=== PATIENT | male | born 1990 | race Caucasian/White ===

== ENCOUNTER 2022-01-01 09:07 | Emergency (ER) | payer MEDICAID, SELFPAY ==
[2022-01-01 09:07] VITALS: BP 131/93; PULSE 57; RESP 16; TEMP 36.6; O2SAT 99; BMI 24.3
--- NOTE | 2022-01-01 09:19 | ED.VIS.DENTA ---
HPI History of Present Illness Chief Complaint: Dental Narrative Narrative: Patient presents with left lower jaw pain/tooth pain and mild swelling of his gum that he noticed this morning. He states he has a cracked tooth in his left lower jaw and was last seen by dentist 4 months ago. He is supposed to have root canal procedure performed, but has been putting it off. He denies any chest pain or shortness of breath. No difficulty swallowing, no drooling or difficulty opening his jaw. He thinks he might have a dental infection. He is not a smoker. PFSH PFSH Home Medications cephalexin 500 mg capsule 500 mg PO TID 04/09/16 [History Last Taken 04/09/16] sulfamethoxazole 800 mg-trimethoprim 160 mg tablet 1 tab PO BID 04/09/16 [History Last Taken 04/09/16] clindamycin HCl 300 mg capsule 300 mg PO TID #21 caps 01/01/22 [Rx Last Taken Unknown] ibuprofen 800 mg tablet 800 mg PO Q8H PRN pain #30 tabs 01/01/22 [Rx Last Taken Unknown] Allergy/AdvReac Type Severity Reaction Status Date / Time No Known Allergies Allergy Verified 04/09/16 10:32 Social History Smoking Status: Current every day smoker ROS ROS ED ROS Narrative Constitutional: No fever, no chills. HEENT: No sore throat. No neck pain. No loss of vision. No rhinorrhea. Positive pain in left lower jaw, dull and achy. Swelling of gum around tooth this morning. Cardiovascular: No chest pain. No palpitations. No pedal edema. Respiratory: No cough, no shortness of breath. Abdominal: No abdominal pain. No nausea. No vomiting. Genitourinary: No dysuria. No hematuria. Musculoskeletal: No myalgias. No arthralgias. Neurologic: No headaches. No dizziness. No lightheadedness. Skin: No rash. No change in color. Psychiatric: No depression. No anxiety. EXAM Physical Exam Narrative Exam Narrative: Afebrile. Vital signs noted. HEENT: Normocephalic. Atraumatic. PERRL, EOMI. Neck soft and supple. No point tenderness or step off. Mild tenderness to percussion tooth #19, no drooling or trismus. Airway patent. No Jon angina or woody edema. Handling secretions well. No noted focal gum swelling. Cardiovascular: Regular rate and rhythm. No murmurs, rubs, or gallops appreciated. Respiratory: No tachypnea. Lungs clear to auscultation bilaterally. Gastrointestinal: Abdomen soft, nontender, with normoactive bowel sounds. No rebound or guarding. Neurological: Awake. Alert. Nonfocal, nonlateralizing. Skin: No rash. Normal color. No pallor. Musculoskeletal: No pedal edema. Full range of motion extremities. Const Vital Signs: 01/01/22 09:07 Temperature 97.9 F Temperature Source Temporal Pulse Rate 57 L Respiratory Rate 16 Blood Pressure 131/93 H Blood Pressure Mean 105 Pulse Ox 99 Oxygen Delivery Method Room Air MDM MDM MDM Narrative Medical decision making narrative: Patient will be given prescriptions for ibuprofen 800 mg to take as needed for analgesia. I will put him on a course of clindamycin. He was instructed to follow-up with his dentist as soon as possible. I see no signs of drainable abscess currently. I feel he can be discharged safely home with follow-up. Return instructions to the emergency department were reviewed. Disposition is discharged home in stable condition. Discharge Plan Triage Chief Complaint: Dental ED Provider: Desmond Pineda Dx/Rx/DC Orders Clinical Impression: Pain due to dental caries, Periapical abscess Instructions: ED Dental Pain, ED Dental Abscess Prescriptions: New clindamycin HCl 300 mg capsule 300 mg PO TID Qty: 21 0RF ibuprofen 800 mg tablet 800 mg PO Q8H PRN (Reason: pain) Qty: 30 0RF No Action sulfamethoxazole-trimethoprim 1 TABLET tablet 1 tab PO BID cephalexin 500 MG capsule 500 mg PO TID Primary Care Provider: Care Physician,No Primary Referrals: Care Physician,No Primary [Primary Care Provider] - Activity Restrictions/Additional Instructions: Follow-up with your dentist as soon as possible. Disposition Disposition: Home, Self Care
== END 2022-01-01 09:27 | disposition home or self-care (01) ==
PROVIDERS: Emergency Provider Emergency Medicine; Visit Provider Emergency Medicine
DX: K04.7 Periapical abscess without sinus (principal); K02.9 Dental caries, unspecified; F17.200 Nicotine dependence, unspecified, uncomplicated
CPT/HCPCS: 99282

== ENCOUNTER 2022-01-03 08:58 | Emergency (ER) | payer MEDICAID, SELFPAY ==
[2022-01-03 09:00] VITALS: BP 128/91; PULSE 57; RESP 16; TEMP 36.3; O2SAT 99; BMI 24.2
--- NOTE | 2022-01-03 09:17 | EDS_ITS ---
HPI History of Present Illness Chief Complaint: Dental Detail of Chief Complaint: Left lower jaw dental abscess Informant: patient Onset/Context/Timing Onset: Days Context: Gradual Onset Timing: Continuous Current Severity: Moderate Maximum Severity: Moderate Associated Symptoms Assocated Symptom - Dental: jaw swelling; Negative for fever Narrative Narrative: 31-year-old male no seen past medical history. For about a week he has had swelling and pain left lower jaw. He has a dental abscess. He was seen 2 days ago placed on clindamycin. He said the swelling is only worse and he was hoping to get it drained today. He denies any other complaints. Prior similar symptoms: No Recent Illness/Hospitalization: No PFSH PFSH Medical History no medical history no medical history Home Medications cephalexin 500 mg capsule 500 mg PO TID 04/09/16 [History Last Taken 04/09/16] sulfamethoxazole 800 mg-trimethoprim 160 mg tablet 1 tab PO BID 04/09/16 [History Last Taken 04/09/16] clindamycin HCl 300 mg capsule 300 mg PO TID #21 caps 01/01/22 [Rx Last Taken Unknown] ibuprofen 800 mg tablet 800 mg PO Q8H PRN pain #30 tabs 01/01/22 [Rx Last Taken Unknown] Allergy/AdvReac Type Severity Reaction Status Date / Time No Known Allergies Allergy Verified 01/03/22 08:59 Social History Smoking Status: Current every day smoker tobacco type: cigarettes ROS ROS ED ROS Narrative Denies. Review of Systems ROS Unobtainable: Denies due to encephalopathy Constitutional Constitutional ED: Denies chills or fever(s) Eyes Eyes: Denies blurry vision ENT ENT ED: Denies ear pain Cardiovascular Cardiovascular: Denies chest pain Respiratory/Chest Respiratory/Chest: Denies cough Gastrointestinal Gastrointestinal: Denies abdominal pain Genitourinary Genitourinary ED: Denies dysuria Musculoskeletal Musculoskeletal: Denies arthralgias Neurologic Neurologic: Denies headache(s) Psychiatric Psychiatric: Denies anxiety Endocrine Endocrinology: Denies cold intolerance Hematologic/Lymphatic Hematologic/Lymphatic: Denies easy bleeding Allergic/Immunologic Allergic/Immunologic ED: Reports mouth swelling; Denies tongue swelling or urti caria EXAM Physical Exam Narrative Exam Narrative: 31-year-old male no acute distress vital signs stable afebrile. HEENT exam is mild swelling left lower jaw. There is an abscess lateral to the teeth along the gumline. He does have areas of dental cavities and decay. Posterior phary nx unremarkable. Underneath his tongue there is no swelling or tenderness. No trouble swallowing or breathing. Neck nontender. No lymphadenopathy. Lungs clear to auscultation. Heart regular rhythm no murmur. Abdomen soft nontender. Const Vital Signs: 01/03/22 09:00 Temperature 97.3 F L Temperature Source Temporal Pulse Rate 57 L Respiratory Rate 16 Blood Pressure 128/91 H Blood Pressure Mean 103 Pulse Ox 99 Oxygen Delivery Method Room Air Positive well nourished and well developed; Negative for obese, cachectic, contractures or unkempt General Appearance ED: well developed and NAD; Negative for unkempt, cachectic or contractures Nutritional Appearance: Negative for cachectic or obese HEENT Negative for trauma Face and Sinus: Negative for sinuses nontender Mouth ED: Yes lips normal, Yes tongue normal, Yes salivary gland normal, No mouth trauma, Yes oral and palatal mucosa abnormal and No salivary gland abnormal Mouth: lips normal, tongue normal, salivary gland normal, No mouth trauma, oral and palatal mucosa abnormal and No salivary gland abnormal Teeth and Gingiva: abnormal tooth and associated gingiva Throat: posterior oropharynx normal Eyes PERRL Neck no lymphadenopathy, supple and no JVD General: normal visual inspection; Negative for anterior neck swelling, tenderness or submandibular swelling Lymph Lymphatic: no lymphadenopathy noted; Negative for lymphadenopathy Chest Wall inspection of chest normal and palpation of chest normal Resp normal respiratory effort, no retractions and clear to auscultation bilaterally Cardio regular rate, regular rhythm, S1 normal heart sound, S2 normal heart sound and no murmurs GI normal to inspection, nondistended, normoactive bowel sounds, non-tender and non-distended Extremity normal to inspection General Extremety ED: Negative for edema General Extremity: Negative for edema Neuro oriented x3, moves all extremities and no focal motor deficits Sensorium / Orientation: alert, oriented to person, oriented to place and oriented to time Motor Exam: strength 5/5 throughout Psych mental status grossly normal Appearance: Negative for unkempt Attitude: No agitated Mood & Affect: Negative for depressed, anxious or tearful Skin no rashes or lesions noted and no wounds Image ED - URI/Dental Diagram: 1. Left lower lateral gumline swelling consistent with an abscess. MDM MDM MDM Narrative Medical decision making narrative: Patient has an abscess along the left lower gumline. Area be anesthetized incised. Drained. He will continue on his current antibiotic clindamycin. Warm salt water gargling. Follow-up with his dentist. Procedures Other Procedures Procedure(s): Left lower gumline abscess incision and drainage. Local anesthetized with lidocaine. Made a 1 to 2 cm incision. Expressed pus. Patient washed his mouth out. Tolerated procedure well. Discharge Plan Triage Chief Complaint: Dental ED Provider: Claude Reinoso Dx/Rx/DC Orders Clinical Impression: Periapical abscess Instructions: Dental Abscess Prescriptions: No Action sulfamethoxazole-trimethoprim 1 TABLET tablet 1 tab PO BID cephalexin 500 MG capsule 500 mg PO TID clindamycin HCl 300 mg capsule 300 mg PO TID Qty: 21 0RF ibuprofen 800 mg tablet 800 mg PO Q8H PRN (Reason: pain) Qty: 30 0RF Primary Care Provider: Care Physician,No Primary Referrals: Care Physician,No Primary [Primary Care Provider] - Activity Restrictions/Additional Instructions: Warm salt water gargling 3-5 times a day. Continue your antibiotic clindamycin as prescribed. Tylenol and Motrin for pain. Follow-up with your dentist as soon as possible. Disposition Disposition: Home, Self Care
[2022-01-03] MEDS: Lidocaine 1% (20 ml mdv) 20 ML Vial INFILT (09:37)
== END 2022-01-03 09:41 | disposition home or self-care (01) ==
PROVIDERS: Emergency Provider Emergency Medicine; Visit Provider Emergency Medicine
DX: K04.7 Periapical abscess without sinus (principal); F17.210 Nicotine dependence, cigarettes, uncomplicated; K02.9 Dental caries, unspecified
CPT/HCPCS: 41800; 64999; 99282

== ENCOUNTER → 2023-06-25 | Outpatient (CLI) | payer MEDICAID, SELFPAY ==
[2023-06-25 11:51] LABS: Absolute Lymphocyte Count 2.86 X10^3/uL (0.83-4.51); Absolute Neutrophil Count 7.5 X10^3/uL (2.0-7.7); Basophil# 0.05 X10^3/uL; Basophil% 0.5 % (0-1); Eosinophil# 0.06 X10^3/uL; Eosinophils% 0.5 % (0-5); Hemoglobin 14.3 g/dL (13.0-16.5); Lymphocyte # 2.86 X10^3/ul (0.83-4.51); Lymphocyte % 25.8 % (19-41); Mean Corp Hgb Conc 33.3 g/dL (32-36); Mean Corpuscular Volume 84.1 fL (80-94); Mean Platelet Vol. 10.8 fl (6.2-12.0); Monocyte# 0.64 X10^3/uL; Monocyte% 5.8 % (0-10); NRBC Flagged by Analyzer 0 % (0-5); Neutrophil # 7.45 X10^3/uL (2.7-7.7); Neutrophil % 67.2 % (47-70); Platelet Count 308 K/mm3 (150-450); RBC Distribution Width CV 12.3 % (11.6-14.6); RBC Distribution Width SD 37.8 fl (35.1-43.9); Red Blood Count 5.11 M/mm3 (4.6-6.2); White Blood Count 11.1 K/mm3 (4.4-11.0)
[2023-06-25 13:28] LABS: ALB/GLOB Ratio 1.1 RATIO (0.9-2.4); AST(SGOT) 22 U/L (15-37); Alanine Aminotransfer ALT/SGPT 25 U/L (16-61); Albumin, Serum 4.1 g/dL (3.2-5.0); Alkaline Phosphatase 66 U/L (45-117); Anion Gap 5 (5-15); BUN 23 mg/dL (7-18); BUN/Creat Ratio 18.1 RATIO (10-20); Calcium,Total 9.1 mg/dL (8.5-10.1); Chloride 103 mmol/L (98-107); Creatinine, Serum 1.27 mg/dL (0.70-1.30); EST Glomerular Filtration Rate 69 mL/min (>60); Est Glom Filt Rate - Afr Amer 84 mL/min (>60); Globulin 3.6 g/dL (2.2-4.2); Glucose 93 mg/dL (74-106); Potassium 3.7 mmol/L (3.5-5.1); Protein, Total 7.7 g/dL (6.4-8.2); Sodium Level 136 mmol/L (136-145)
--- OUTSIDE RECORDS SUMMARY | 2023-06-25 14:09 | XMS RPT_ITS | CCD ---
Author Name Unknown Address [address] [place] [address] [facility] Care Team Providers Care [facility] Runner Name Role Phone UNKNOWN, PROVIDER Unavailable Unavailable Alvarez Hughes Unavailable Unavailable Ronni Short Unavailable Unavailable KATHERIN CABRERA Unavailable Unavailable ESTERLEKATHERIN Unavailable Unavailable ESTERLEKATHERIN Unavailable Unavailable ESTERLEKATHERIN Unavailable Unavailable ESTERKATHERIN CARLOS Unavailable Unavailable ESTERKATHERIN CARLOS Unavailable Unavailable ESTERLE, KATHERIN Unavailable Unavailable ESTERKATHERIN CARLOS Unavailable Unavailable DEBORAHKATHERIN HOWARD Attending Unavailable ESTERKATHERIN CARLOS Attending Unavailable IMCA Referring Unavailable ESTERKATHERIN CARLOS Attending Unavailable ESTERKATHERIN CARLOS Referring Unavailable ESTERKATHERIN CARLOS Admitting Unavailable ESTERKATHERIN CARLOS Attending Unavailable KOUTRODIMOS, MILENA (OT) Attending Unav ailable ESTERKATHERIN CARLOS Referring Unavailable KOUTRODIMOS, MILENA (OT) Attending Unav ailable ESTERKATHERIN CARLOS Referring Unavailable ESTERKATHERIN CARLOS Attending Unavailable ESTERKATHERIN CARLOS Referring Unavailable KOUTRODIMOS, MILENA (OT) Attending Unav ailable ESTERKATHERIN CARLOS Referring Unavailable No, Physician Primary Care Provider UnavailRICH De Luna Attending Unavail able NO, PHYSICIAN Primary Care Unavailable Jem Najera MD Primary Care Provider [phone] JEM NAJERA Primary Care Unavailable KATHERIN VALLADARES Attending Unavailable CAPALDO, JEM Primary Care Unavailable ONEL WALL Attending Unavailable JEM NAJERA Primary Care Unavailable JEM NAJERA Primary Care Unavailable JEM NAJERA Attending Unavailable Medications Current Medications Medication Drug Class(es) Dates Sig (Normalized) Sig (Original) clotrimazole 10 mg/ml topical cream (7 sources) Azole Antifungal Start: 07-26-2022 End: 08-09-2022 clotrimazole (LOTRIMIN) 1 % cream Indications: Rash and nonspecific skin eruption Apply topically 2 (two) times a day for 14 days . 60 g 0 07/26/2022 08/09/2022 Active Problems Problem Classification Problem Date Documented Da te Episodic/Chronic Crushing injury or internal injury (1 source) Crushing injury of right index finger, initial encounter; Translations: [Crushing injury of right index finger, initial encounter] Onset: 03-11-2018 Episodic Fracture of upper limb (2 sources) Displaced fracture of distal phalanx of right index finger, initial encounter for open fracture; Translations: [Nondisplaced fracture of distal phalanx of right index finger, initial encounter for open fracture] Onset: 03-09-2018 Episodic Hepatitis (2 sources) Chronic viral hepatitis C; Translations: [Chronic viral hepatitis C] Onset: 10-04-2022 Chronic Hepatitis (1 source) Viral hepatitis C; Translations: [Unspecified viral hepatitis C without hepatic coma] 08-31-2022 Episodic Nutritional deficiencies (6 sources) Vitamin D deficiency; Translations: [Vitamin D deficiency, unspecified] Onset: 08-30-2022 08-21-2022 Chronic Open wounds of extremities (1 source) Laceration without foreign body of unspecified finger with damage to nail, initial encounter; Translations: [Laceration without foreign body of unspecified finger with damage to nail, initial encounter] Onset: 03-11-2018 Episodic Other bone disease and musculoskeletal deformities (1 source) Acquired absence of unspecified finger(s); Translations: [Acquired absence of unspecified finger(s)] Onset: 03-24-2018 Episodic Other infections; including parasitic (10 sources) History of hepatitis C; Translations: [Personal history of other infectious and parasitic diseases] Onset: 08-23-2022 08-23-2022 Episodic Other infections; including parasitic (2 sources) Personal history of other infectious and parasitic diseases; Translations: [Personal history of other infectious and parasitic diseases] Onset: 08-23-2022 Episodic Other skin disorders (1 source) Eruption; Translations: [Rash and other nonspecific skin eruption] Episodic Other skin disorders (2 sources) Rash and other nonspecific skin eruption; Translations: [Rash and other nonspecific skin eruption] Onset: 07-26-2022 Episodic Poisoning by other medications and drugs (2 sources) Poisoning by unspecified narcotics, accidental (unintentional), initial encounter; Translations: [Poisoning by unsp narcotics, accidental, init] Onset: 02-12-2018 Substance-related disorders (2 sources) Nicotine dependence, unspecified, uncomplicated; Translations: [Nicotine dependence, unspecified, uncomplicated] Onset: 02-12-2018 Chronic Unclassified (2 sources) Transient alteration of awareness; Translations: [Transient alteration of awareness] Onset: 02-12-2018 Episodic Unclassified (1 source) Unknown / UNK(Unknown) Onset: 03-13-2018 Unclassified (2 sources) Laceration without foreign body of unspecified finger with damage to nail, initial encounter Onset: 03-11-2018 Results Test Name Value Interpretation Reference Range Facil ity Vital Signs Date Time Vital Sign Value Performing Clinician Faci lity 08-23-2022 14:34-0400 Body height 172.7 cm Jem Najera MD Work Phone: [facility] 08-23-2022 14:34-0400 Body mass index (BMI) [Ratio] 24.5 kg/m2 Jem Najera MD Work Phone: [facility] 08-23-2022 14:34-0400 Body temperature 98.1 [degF] Jem Najera MD Work Phone: [facility] 08-23-2022 14:34-0400 Body weight 73.07 kg Jem Najera MD Work Phone: [facility] 08-23-2022 14:34-0400 Diastolic blood pressure 66 mm[Hg] Jem Najera MD Work Phone: [facility] 08-23-2022 14:34-0400 Heart rate 60 /min Jem Najera MD Work Phone: [facility] 08-23-2022 14:34-0400 Respiratory rate 16 /min Jem Najera MD Work Phone: [facility] 08-23-2022 14:34-0400 Systolic blood pressure 118 mm[Hg] Jem Najera MD Work Phone: [facility] 07-26-2022 15:20-0500 Body height 172.7 cm Rich Farrell QUALITY IMPROVEMENT CONSULTANT Work Phone: [facility] 07-26-2022 15:20-0500 Body mass index (BMI) [Ratio] 24.02 kg/m2 Richsmith Farrell QUALITY IMPROVEMENT CONSULTANT Work Phone: [facility] 07-26-2022 15:20-0500 Body temperature 97 [degF] Richsmith Farrell QUALITY IMPROVEMENT CONSULTANT Work Phone: [facility] 07-26-2022 15:20-0500 Body weight 71.67 kg Rich Farrell QUALITY IMPROVEMENT CONSULTANT Work Phone: [facility] 07-26-2022 15:20-0500 Diastolic blood pressure 79 mm[Hg] Richsmith Farrell QUALITY IMPROVEMENT CONSULTANT Work Phone: [facility] 07-26-2022 15:20-0500 Heart rate 65 /min Richsmith Farrell QUALITY IMPROVEMENT CONSULTANT Work Phone: [facility] 07-26-2022 15:20-0500 Respiratory rate 16 /min Richsmith Farrell QUALITY IMPROVEMENT CONSULTANT Work Phone: [facility] 07-26-2022 15:20-0500 SaO2% (BldA) [Mass fraction] 97 % Rich Farrell QUALITY IMPROVEMENT CONSULTANT Work Phone: [facility] 07-26-2022 15:20-0500 Systolic blood pressure 119 mm[Hg] Rich Farrell CN P Work Phone: [facility] Encounters Encounter Date Encounter Type Care Provider Facility Start: 10-16-2022 End: 10-16-2022 ambulatory [facility] Start: 10-16-2022 End: 10-16-2022 Encounter for general adult medical examination without abnormal findings [facility] Start: 10-04-2022 End: 10-04-2022 ambulatory [facility] Start: 08-31-2022 Orders Only Jem Rivera do, MD Work Phone: [facility] Procedures Date Procedure Procedure Detail Performing Clinician Start: 08-23-2022 Adult depression screening assessment Jem Najera MD Work Phone: Plan of Treatment Date Care Activity Detail Author Start: 08-29-2023 End: 08-29-2023 Patient encounter procedure 08/29/2023 2:30 PM EDT Office Visit [facility] [address] [place] [address] Jem Najera MD [address] [place] [address] [facility] Start: 08-24-2023 Depression screening using PHQ-9 (Patient Health Questionnaire 9) score Depression Screening (PHQ-2/9) [facility] Start: 08-24-2023 History and physical examination, annual for health maintenance Wellness Visit [facility] Start: 01-18-2023 Influenza vaccination Sequential Influenza Vaccine (Season Ended) [facility] Start: 09-07-2022 End: 09-01-2023 Hepatitis B virus DNA assay Hepatitis B Viral DNA Lab Routine Encounter for screening and preventative care Expected: 09/07/2022 (Approximate), Expires: 09/01/2023 [facility] Work Phone: Payers Date Payer Category Payer Medicaid [employer] [id number] 2022-Present [phone] [address] [place] [address] [id number] 2022 Medicaid [id number] 1990 Unknown [id number] 1989 Unknown [id number] 1989 Unknown [id number] 1989 Unknown [id number] [id number] 1989 Unknown [id number] [id number] 1989 Unknown [id number] 1989 Unknown [id number] [id number] 1989 Unknown [id number] [id number] 1989 Unknown [id number] [id number] 1989 Unknown [id number] [id number] 1989 Unknown [id number] [id number] 1989 Unknown [id number] [id number] 1989 Unknown [id number] [id number] Self-pay Unknown Unknown [id number] Social History Date Type Detail Facility Start: 07-26-2022 End: 08-23-2022 Tobacco smoking status AZIS Ex-smoker [facility] End: 05-20-2019 History of tobacco use Current smoker [facility] End: 05-20-2019 History of tobacco use Cigarette Smoker [facility] Start: 07-26-2022 End: 08-23-2022 Tobacco use and exposure Smokeless tobacco non-user [facility] Start: 07-26-2022 End: 08-23-2022 Alcohol intake Ex-drinker (finding) [facility] Start: 1990 Sex Assigned At Not on file [facility] Start: 07-16-2022 End: 08-23-2022 Exposure to SARS-CoV-2 (event) Not sure [facility] Start: 07-26-2022 End: 08-23-2022 Cigarettes smoked current (pack per day) - Reported 1.5 [facility] Start: 07-26-2022 End: 08-23-2022 Tobacco use panel [facility] Start: 08-23-2022 Tobacco Comment Would smoke 1-2 pack s a day [facility] How hard is it for y ou to pay for the very basics like food, housing, medical care, and heating Not very hard [facility] Adult Depression Scr eening Assessment 0 [facility] (I/We) worried wheth er (my/our) food would run out before (I/we) got money to buy more. Never true [facility] Clinical Notes 07-26-2022 to 09-27-2022 Assessment & Plan Note - Jem Najera MD - 08/23/2022 3:03 PM EDTAssessment & Plan Note - Jem Najera MD - 08/23/2022 3:03 PM EDTJem Najera MD - 08/23/2022 2:30 PM EDT Note Date & Type Note Facility 09-27-2022 Note EXAMINATION: CV IR BIOPSY (non targeted liver) PROCEDURE: 1. Ultrasound guided non targeted liver biopsy. 2. Ultrasound guidance. HISTORY: 31-year-old with hep C COMPARISON: None OPERATING PHYSICIAN: Katherin Valladares MD MEDICATIONS: Lidocaine, local Fentanyl: 100 mcg Versed: 2 mg Zofran 4 mg IV Benadryl 50 mg IV RADIATION DOSE: None TECHNIQUE/FINDINGS: Informed written consent was obtained from the patient and witnessed following a discussion of the benefits and potential risks of the procedure which include but are not limited to infection, bleeding, and injury to adjacent structures. The patient's concerns were addressed. The patient was brought to the procedure suite and placed in a supine position. A time-out and pause/confirm was performed according to hospital policy. Initial ultrasound images demonstrate normal appearance of the liver. An appropriate skin entry site was selected and marked targeting the right hepatic lobe. The upper abdomen was prepped and draped in usual sterile fashion. All elements of maximal sterile barrier techniques were followed and when used sterile ultrasound preparation was utilized. The skin and underlying soft tissues were anesthetized with lidocaine. Under direct ultrasound guidance, a guiding cannula was advanced into the liver. 3 18 gauge core biopsy specimens were obtained and sent to pathology for analysis. The guiding cannula was removed as Gel-Foam was injected and manual pressure applied until hemostasis was obtained. Appropriate sterile dressing was placed. The patient tolerated the procedure well without evidence of immediate postprocedural complication. IV moderate sedation was administered with continuous personal physician supervision for 18 minutes throughout the procedure with Versed and fentanyl after assessment of the patient's airway was complete. Continuous pulse oximetry and capnography monitoring was performed under personal physician supervision. ESTIMATED BLOOD LOSS: Less than 5 mL COMPLICATIONS: None IMPRESSION: 1. Technically successful random liver biopsy. Workstation ID: [id number] Dictated by: KATHERIN VALLADARES on SatOctober 04, 2022 2:11:11 PM EDT Transcribed by: KATHERIN VALLADARES on SatOctober 04, 2022 2:11:11 PM EDT Finalized by: KATHERIN VALLADARES on SatOctober 04, 2022 2:11:11 PM EDT [facility] 08-23-2022 Evaluation + Plan note Associ ated Problem(s): History of hepatitis C BW Treatment if needed for active infection [facility] 08-23-2022 Miscellaneous Notes Associate d Problem(s): History of hepatitis C BW Treatment if needed for active infection documented in this encounter [facility] 08-23-2022 History of Presen t illness Narrative Images from the original note were not included. Subjective Patient ID: Donald Robledo Spencer is a 31 y.o. male. Patient Active Problem List Diagnosis History of hepatitis C Rash resolved with cream 6 months ago. Re-appeared, went back to . Same spot on back of R arm. There continuously for 6 months, then went away. The following portions of the patient's history were reviewed and updated as appropriate: allergies, current medications, past family history, past medical history, past social history, past surgical history, and problem list. Past Medical History: Diagnosis Date Asthma Was diagnosed as a child. Hepatitis C 2018 Patient's Medications New Prescriptions No medications on file Previous Medications CLOTRIMAZOLE (LOTRIMIN) 1 % CREAM Apply 1 Application topically 2 (two) times a day as needed . TRIAMCINOLONE (KENALOG) 0.1 % CREAM Apply 1 Application topically 2 (two) times a day as needed . Modified Medications No medications on file Discontinued Medications No medications on file Past Surgical History: Procedure Laterality Date TONSILLECTOMY WISDOM TOOTH EXTRACTION Family History Problem Relation Age of Onset Cirrhosis Mother of the Liver Heart failure Father Heart attack Paternal Grandfather Social History Socioeconomic History Marital status: Single Tobacco Use Smoking status: Former Packs/day: 1.50 Years: 17.00 Pack years: 25.50 Types: Cigarettes Quit date: 2019 Years since quittin.2 Smokeless tobacco: Never Tobacco comments: Would smoke 1-2 packs a day Vaping Use Vaping status: Never Used Substance and Sexual Activity Alcohol use: Not Currently Drug use: Not Currently Types: Heroin, Methamphetamines, Marijuana Comment: 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 HENT: Negative for congestion, ear pain, rhinorrhea, sinus pain, sore throat, trouble swallowing and voice change. Eyes: Negative for pain. Respiratory: Negative for chest tightness, shortness of breath and wheezing. Cardiovascular: Negative for chest pain, palpitations and leg swelling. Gastrointestinal: Negative for abdominal distention, abdominal pain, blood in stool, constipation, diarrhea, nausea and vomiting. Endocrine: Negative for cold intolerance, heat intolerance, polydipsia and polyuria. Genitourinary: Negative for decreased urine volume, difficulty urinating, dysuria, flank pain, frequency, genital sores, hematuria, penile discharge, penile pain, scrotal swelling, testicular pain and urgency. Musculoskeletal: Negative for arthralgias, gait problem, joint swelling and myalgias. Skin: Negative for color change and rash. Neurological: Negative for dizziness, syncope, weakness, light-headedness, numbness and headaches. Hematological: Does not bruise/bleed easily. Psychiatric/Behavioral: Negative for agitation, behavioral problems, confusion, hallucinations, sleep disturbance and suicidal ideas. Health Maintenance reviewed. Objective Vitals: 08/23/22 1434 BP: 118/66 BP Location: Left arm Patient Position: Sitting BP Cuff Size: X-large Adult Pulse: 60 Resp: 16 Temp: 98.1 F (36.7 C) TempSrc: Oral Weight: 73.1 kg (161 lb 1.6 oz) Height: 5' 8 No results found for any previous visit. Physical Exam Vitals reviewed. Constitutional: General: He is not in acute distress. Appearance: Normal appearance. He is not ill-appearing or toxic-appearing. HENT: Head: Normocephalic and atraumatic. Right Ear: External ear normal. Left Ear: External ear normal. Nose: No rhinorrhea. Mouth/Throat: Mouth: Mucous membranes are moist. Pharynx: Oropharynx is clear. No oropharyngeal exudate or posterior oropharyngeal erythema. Eyes: General: No scleral icterus. Right eye: No discharge. Left eye: No discharge. Extraocular Movements: Extraocular movements intact. Conjunctiva/sclera: Conjunctivae normal. Pupils: Pupils are equal, round, and reactive to light. Cardiovascular: Rate and Rhythm: Normal rate and regular rhythm. Pulses: Normal pulses. Heart sounds: Normal heart sounds. No murmur heard. No friction rub. No gallop. Pulmonary: Effort: Pulmonary effort is normal. No respiratory distress. Breath sounds: Normal breath sounds. No stridor. No wheezing, rhonchi or rales. Chest: Chest wall: No tenderness. Abdominal: General: Abdomen is flat. Bowel sounds are normal. There is no distension. Palpations: Abdomen is soft. There is no mass. Tenderness: There is no abdominal tenderness. There is no guarding or rebound. Musculoskeletal: General: No swelling, tenderness, deformity or signs of injury. Normal range of motion. Cervical back: Normal range of motion and neck supple. No tenderness. Right lower leg: No edema. Left lower leg: No edema. Lymphadenopathy: Cervical: No cervical adenopathy. Skin: General: Skin is warm and dry. Findings: No bruising, erythema, lesion or rash. Neurological: General: No focal deficit present. Mental Status: He is alert and oriented to person, place, and time. Mental status is at baseline. Sensory: No sensory deficit. Motor: No weakness. Psychiatric: Mood and Affect: Mood normal. Behavior: Behavior normal. Thought Content: Thought content normal. Judgment: Judgment normal. Assessment/Plan: Problem List Items Addressed This Visit Digestive History of hepatitis C - Primary BW Treatment if needed for active infection Relevant Orders Hepatitis C Antibody Hepatitis C Virus PCR, Blood, Quantitative Hepatitis B Surface Antibody Hepatitis B Core Antibody, Total Other Visit Diagnoses Encounter for screening and preventative care Relevant Orders Urinalysis Comprehensive Metabolic Panel CBC and Differential Lipid Panel Hemoglobin A1c TSH Microalbumin/Creatinine Ratio, UR Random Vitamin D, Total, 25-OH HIV 1/2 Screen (4th Generation) Hepatitis C Antibody Hepatitis C Virus PCR, Blood, Quantitative Hepatitis B Surface Antibody Hepatitis B Core Antibody, Total Vitamin D deficiency Relevant Orders Vitamin D, Total, 25-OH Discontinued Medications No medications on file Modified Medications No medications on file Jem Najera M.D. documented in this encounter [facility] 07-26-2022 Instructions Rich Farrell CNP - 07/26/2022 3:40 PM EST Thank you for choosing [facility] for your healthcare needs today. I sent in similar medications to those given last visit. I would try the steroid cream first. If no improvement then use the antifungal. Rash has appearance of nummular eczema but has similar appearance to tinea (ringworm). Take a picture for follow up with your doctor in three weeks. I expect the rash to clear in a couple of weeks. Use medication for 14 days even if the rash appears cleared. The following attachments cannot be sent through Care Everywhere.Rash ([place]i)documented in this encounter [facility] 07-26-2022 History of Presen t illness Narrative Images from the original note were not included. Patient Name: [facility] Location: [facility] Robledo [facility] [address] [facility] [id number] Date Of : Date Of Visit: 1990 07/26/2022 MRN# Provider: [id number] Rich Farrell CNP Chief Complaint Patient presents with Rash Back of right arm on and off x's 6 months Was treated with a cream and it came back, dx with ringworm Assessment & Plan 1. Rash and nonspecific skin eruption triamcinolone (KENALOG) 0.1 % cream clotrimazole (LOTRIMIN) 1 % cream No follow-ups on file. Medical Decision Making Client pleasant, non-toxic in NAD with recurring rash to the right upper posterior arm. Rash is itchy. He has been diagnosed and treated for ringworm in past with an antifungal and steroid cream. No history of eczema. No cats in the house. Consider: Eczema, Nummular Eczema, Tinea/Ringworm. See H&P Rash is not typical of Tinea. No raised border or central clearing typical of Tinea. Red raised rough patch with scaling about nickel size to the right upper posterior arm. Client provided a Steroid and Antifungal cream as before. This treatment cleared the rash for a while. He reports an appointment with PCP in three weeks. Additional Clinical Comments I sent in similar medications to those given last visit. I would try the steroid cream first. If no improvement then use the antifungal. Rash has appearance of nummular eczema but has similar appearance to tinea (ringworm). Take a picture for follow up with your doctor in three weeks. I expect the rash to clear in a couple of weeks. Use medication for 14 days even if the rash appears cleared. Subjective 31 y.o. male presents with Rash (Back of right arm on and off x's 6 months /Was treated with a cream and it came back, dx with ringworm ) Rash to the right arm intermittent for 6 months. He has been diagnosed and treated for ringworm in past. Rash This is a recurrent problem. The current episode started more than 1 month ago. The problem has been waxing and waning since onset. The affected locations include the right arm. The rash is characterized by redness, peeling, scaling and itchiness. He was exposed to nothing. Past treatments include topical steroids (antifungal cream). The treatment provided significant relief. There is no history of eczema. Review Of Systems Review of Systems Skin: Positive for rash. Right upper posterior arm. Rash is in the same place as previous. Medical History History reviewed. No pertinent past medical history. Past Surgical History: Procedure Laterality Date TONSILLECTOMY There is no problem list on file for this patient. Social History Social History Tobacco Use Smoking status: Former Types: Cigarettes Smokeless tobacco: Never Vaping Use Vaping Use: Never used Substance Use Topics Alcohol use: Not Currently Drug use: Not Currently Family History No family history on file. Objective Physical Exam BP 119/79 Pulse 65 Temp 97 F (36.1 C) (Tympanic) Resp 16 Ht 5' 8 Wt 71.7 kg (158 lb) SpO2 97% BMI 24.02 kg/m Vision/Hearing Exam:No results found. Physical Exam Vitals and nursing note reviewed. Constitutional: General: He is not in acute distress. Appearance: Normal appearance. He is not ill-appearing, toxic-appearing or diaphoretic. Cardiovascular: Rate and Rhythm: Normal rate. Pulmonary: Effort: Pulmonary effort is normal. No respiratory distress. Skin: General: Skin is warm and dry. Neurological: Mental Status: He is alert. Psychiatric: Mood and Affect: Mood normal. Behavior: Behavior normal. Procedure Notes Procedures Results No results found for this or any previous visit (from the past 168 hour(s)). No orders to display Orders Placed This Visit No orders of the defined types were placed in this encounter. Medication List At End Of Visit Current Outpatient Medications Medication Sig Dispense Refill clotrimazole (LOTRIMIN) 1 % cream Apply topically 2 (two) times a day for 14 days . 60 g 0 triamcinolone (KENALOG) 0.1 % cream Apply topically 2 (two) times a day for 14 days . 80 g 0 No current facility-administered medications for this visit. Patient Instructions Thank you for choosing [facility] for your healthcare needs today. I sent in similar medications to those given last visit. I would try the steroid cream first. If no improvement then use the antifungal. Rash has appearance of nummular eczema but has similar appearance to tinea (ringworm). Take a picture for follow up with your doctor in three weeks. I expect the rash to clear in a couple of weeks. Use medication for 14 days even if the rash appears cleared. documented in this encounter [facility] History of hepatitis C- Primary Personal history of other infectious and parasitic disease Encounter for screening and preventative care Vitamin D deficiency [facility] Diagnosis History of hepatitis C- Primary Personal history of other infectious and parasitic disease Encounter for screening and preventative care Vitamin D deficiency [facility] Diagnosis Encounter for screening and preventative care- Primary [facility] Diagnosis Hepatitis C virus infection without hepatic coma, unspecified chronicity- Primary documented in this encounter [facility] note* Diagnosis History of hepatitis C- Primary Personal history of other infectious and parasitic disease Encounter for screening and preventative care Vitamin D deficiency documented in this encounter [facility] Summary Purpose Family History No Family History Records FoundNo Family History Records FoundNo Family History Records FoundNo Family History Records FoundNo Family History Records FoundNo Family History Records FoundNo Family History Records Found Advance Directives Latest Code Status on File Code Status Date Activated Date Inactivated Comments Full Code - Unverified 10/04/2022 1:50 PM 10/04/2022 5:5 9 PM Procedure Findings Note HNO ID: [id number]: Jaleesa Andrewservice: Hand SurgeryAuthor Type: PhysicianType: Brief Op NoteFiled: 03/11/2018 2:08 PMNote Text:BRIEF OPERATIVE / PROCEDURE NOTELOG ID: [id number]/Procedure Date: 03/11/2018Incision/Procedure Start Time: 1:21 PMIncision Close/Procedure End Time: 1:59 PMSurgeon(s)/Proceduralist(s) and Factory Hand(s):Surgeon(s) and Role: * Katherin Gama - Primary * Skip (Wendy Adams - Resident - AssistingNo Additional StaffProcedure(s): Revision amputation right index finger at mid-distal phalanxlevel [id number]: Monitored Anesthesia Care + BlockFindings: Comminuted tuff fracture with some tissue loss and devitalizedskin. Revision amputation performed to mid aspect of distal phalanx.Estimated Blood Loss: minimalSpecimens: NoneComplications: NonePre-Op/Pre-Procedure Diagnosis: Crushing injury of right index finger,Open displaced fracture of distal phalanx of right index finger,Laceration of finger nail bedPost-Op/Post-Procedure Diagnosis: Crushing inju (more content not included)... Reason for Referral Specialty Diagnoses / Procedures Referred By Vaughn t Referred To Contact Diagnoses Hepatitis C virus infection without hepatic coma, unspecified chronicity Jem Najera MD [address] [place] [address] Rich Reyes MD [address] [place] [address] Referral ID Status Reason Start Date Expiration Date Visits Requested Visits Authorized [id number] Authorized Specialty Services Required/Pat ient's Best Interest 09/07/2022 09/07/2023 1 1 Additional Source Comments (unrecognized sect ion and content) No Status Records FoundNo Status Records FoundNo Status Records FoundNo Status Records FoundNo Status Records FoundNo Status Records FoundNo Status Records Found INFORMATION SOURCE (unrecogn ized section and content) DATE CREATED AUTHOR AUTHOR'S ORGANIZ ATION 04/27/2018 [facility] DATE CREATED AUTHOR AUTHOR'S ORGANIZ ATION 07/07/2018 [facility] DATE CREATED AUTHOR AUTHOR'S ORGANIZ ATION 11/06/2018 [facility] DATE CREATED AUTHOR AUTHOR'[facility] OR[facility]IZ ATION [facility] DATE CREATED AUTHOR AUTHOR'S ORGANIZ ATION 10/26/2022 [facility] DATE CREATED AUTHOR AUTHOR'S ORGANIZ ATION [facility] Reason for Visit (unrecogniz ed section and content) Care Teams (unrecognized sec tion and content) Groover Runner Relationship Specialty Start Date End Date Jem Najera MD [address] [place] [address] PCP - General Internal Medicine 08/23/22 Groover Runner Relationship Specialty Start Date End Date Jem Najera MD [address] [place] [address] PCP - General Internal Medicine 08/23/22 Groover Runner Relationship Specialty Start Date End Date Jem Najera MD [address] [place] [address] PCP - General Internal Medicine 08/23/22 Groover Runner Relationship Specialty Start Date End Date Jem Najera MD [address] [place] [address] PCP - General Internal Medicine 08/23/22 Groover Runner Relationship Specialty Start Date End Date Jem Najera MD [address] [place] [address] PCP - General Internal Medicine 08/23/22 FOR RECORDS PERTAINING TO PATIENTS WHO ARE OR HAVE BEEN ENROLLED IN A CHEMICAL DEPENDENCY/SUBSTANCEABUSE PROGRAM, SOME INFORMATION MAY BE OMITTED. This clinical summary was aggregated from multiple sources. Caution should be exercised in using it in the provision of clinical care. This summary normalizes information from multiple sources, and as a consequence, information in this document may materially change the coding, format and clinical context of patient data. In addition, data may be omitted in some cases. CLINICAL DECISIONS SHOULD BE BASED ON THE PRIMARY CLINICAL RECORDS. [employer] [facility]. provides no warranty or guarantee of the accuracy or completeness of information in this document.
[2023-06-27 01:07] LABS: HCV Quant. RNA PCR HCV Not Detected IU/mL (.)
== END | disposition home or self-care (01) ==
LOC: LAB 11:19
DX: B18.2 Chronic viral hepatitis C (principal)
CPT/HCPCS: 36415; 80053; 85025; 87522

== ENCOUNTER → 2023-07-08 | Outpatient (CLI) | payer MEDICAID, SELFPAY ==
[2023-07-08 16:22] LABS: Hepatitis B Surface Antibody Reactive
--- OUTSIDE RECORDS SUMMARY | 2023-07-08 17:29 | XMS RPT_ITS | CCD ---
Author Name Unknown Address [address] [place] [address] Organization [facility] Care Team Providers Care Senior Applications Analyst Name Role Phone UNKNOWN, PROVIDER Unavailable Unavailable Alvarez Hughes Unavailable Unavailable Ronni Short Unavailable Unavailable KATHERIN CABRERA Unavailable Unavailable ESTERLEKATHERIN Unavailable Unavailable ESTERLEKATHERIN Unavailable Unavailable ESTERLEKATHERIN Unavailable Unavailable ESTERLEKATHERIN Unavailable Unavailable ESTERLEKATHERIN Unavailable Unavailable ESTERLE, KATHERIN Unavailable Unavailable ESTERTERRANCE, KATHERIN Unavailable Unavailable KATHERIN CABRERA Attending Unavailable ESTERKATHERIN CARLOS Attending Unavailable IMCA Referring Unavailable ESTERKATHERIN CARLOS Attending Unavailable ESTERKATHERIN CARLOS Referring Unavailable ESTERKATHERIN CARLOS Admitting Unavailable ESTERKATHERIN CARLOS Attending Unavailable KOUTRODIMOS, MILENA (OT) Attending Unav ailable ESTERLEKATHERIN Referring Unavailable KOUTRODIMOS, MILENA (OT) Attending Unav ailable ESTERKATHERIN CARLOS Referring Unavailable ESTERKATHERIN CARLOS Attending Unavailable ESTERKATHERIN CARLOS Referring Unavailable KOUTRODIMOS, MILENA (OT) Attending Unav ailable ESTERKATHERIN CARLOS Referring Unavailable No, Physician Primary Care Provider UnavailRICH De Luna Attending Unavail able NO, PHYSICIAN Primary Care Unavailable Jem Najera MD Primary Care Provider JEM NAJERA Primary Care Unavailable KATHERIN VALLADARES Attending Unavailable CAPALDO, JEM Primary Care Unavailable ONEL WALL Attending Unavailable JEM NAJERA Primary Care Unavailable JEM NAJEAR Primary Care Unavailable JEM NAJERA Attending Unavailable [...] 172.7 cm Jem Najera MD Work Phone: [facility] 08-23-2022 14:34-0400 Body mass index (BMI) [Ratio] 24.5 kg/m2 Jem Najera MD Work Phone: [facility] 08-23-2022 14:34-0400 Body temperature 98.1 [degF] Jem Najera MD Work Phone: [facility] 08-23-2022 14:34-0400 Body weight 73.07 kg Jme Najera MD Work Phone: [facility] 08-23-2022 14:34-0400 Diastolic blood pressure 66 mm[Hg] Jem Najera MD Work Phone: [facility] 08-23-2022 14:34-0400 Heart rate 60 /min Jem Najera MD Work Phone: [facility] 08-23-2022 14:34-0400 Respiratory rate 16 /min Jem Najera MD Work Phone: [facility] 08-23-2022 14:34-0400 Systolic blood pressure 118 mm[Hg] Jem Najera MD Work Phone: [facility] 07-26-2022 15:20-0500 Body height 172.7 cm Richsmith Farrell WEIGHER ALLOY Work Phone: [facility] 07-26-2022 15:20-0500 Body mass index (BMI) [Ratio] 24.02 kg/m2 Rich Conn WEIGHER ALLOY Work Phone: [facility] 07-26-2022 15:20-0500 Body temperature 97 [degF] Richsmith Farrell WEIGHER ALLOY Work Phone: [facility] 07-26-2022 15:20-0500 Body weight 71.67 kg Richsmith Farrell WEIGHER ALLOY Work Phone: [facility] 07-26-2022 15:20-0500 Diastolic blood pressure 79 mm[Hg] Richsmith Farrell WEIGHER ALLOY Work Phone: [facility] 07-26-2022 15:20-0500 Heart rate 65 /min Richsmith Farrell WEIGHER ALLOY Work Phone: [facility] 07-26-2022 15:20-0500 Respiratory rate 16 /min Richsmith Farrell WEIGHER ALLOY Work Phone: [facility] 07-26-2022 15:20-0500 SaO2% (BldA) [Mass fraction] 97 % Richsmith Farrell WEIGHER ALLOY Work Phone: [facility] 07-26-2022 15:20-0500 Systolic blood pressure 119 mm[Hg] Rich Farrell CN P Work Phone: [facility] Encounters Encounter Date Encounter Type Care Provider Facility Start: 10-16-2022 End: 10-16-2022 ambulatory [facility] Start: 10-16-2022 End: 10-16-2022 Encounter for general adult medical examination without abnormal findings [facility] Start: 10-04-2022 End: 10-04-2022 ambulatory [facility] Start: 08-31-2022 Orders Only Jem Rivera do, MD Work Phone: [facility] Procedures Date Procedure Procedure Detail Performing Clinician Start: 08-23-2022 Adult depression screening assessment Jem Najera MD Work Phone: Plan of Treatment Date Care Activity Detail Author Start: 08-29-2023 End: 08-29-2023 Patient encounter procedure 08/29/2023 2:30 PM EDT Office Visit [facility] [address] [place] [address] Jem Najera MD [address] [place] [address] [facility] Start: 08-24-2023 Depression screening using PHQ-9 (Patient Health Questionnaire 9) score Depression Screening (PHQ-2/9) [facility] Start: 08-24-2023 History and physical examination, annual for health maintenance Wellness Visit [facility] Start: 01-18-2023 Influenza vaccination Sequential Influenza Vaccine (Season Ended) [facility] Start: 09-07-2022 End: 09-01-2023 Hepatitis B virus DNA assay Hepatitis B Viral DNA Lab Routine Encounter for screening and preventative care Expected: 09/07/2022 (Approximate), Expires: 09/01/2023 [facility] Work Phone: Payers Date Payer Category Payer Medicaid [employer] [id number] 2022-Present [phone] [address] [place] [address] [id number] 2022 Medicaid [id number] 1989 Unknown [id number] 1989 Unknown [id number] 1989 Unknown [id number] [id number] 1989 Unknown [id number] [id number] 1989 Unknown [id number] [id number] 1989 Unknown [id number] [id number] 1989 Unknown [id number] [id number] 1989 Unknown [id number] [id number] 1989 Unknown [id number] [id number] 1989 Unknown [id number] [id number] 1989 Unknown [id number] [id number] 1989 Unknown [id number] [id number] 1989 Unknown [id number] [id number] Self-pay Unknown Unknown [phone] Social History Date Type Detail Facility Start: 07-26-2022 End: 08-23-2022 Tobacco smoking status MDIS Ex-smoker [facility] End: 05-20-2019 History of tobacco use Current smoker [facility] End: 05-20-2019 History of tobacco use Cigarette Smoker [facility] Start: 07-26-2022 End: 08-23-2022 Tobacco use and exposure Smokeless tobacco non-user [facility] Start: 07-26-2022 End: 08-23-2022 Alcohol intake Ex-drinker (finding) [facility] Start: 1990 Sex Assigned At Not on file [facility] Start: 07-16-2022 End: 08-23-2022 Exposure to SARS-CoV-2 (event) Not sure [facility] Start: 07-26-2022 End: 08-23-2022 Cigarettes smoked current (pack per day) - Reported 1.5 [facility] Start: 07-26-2022 End: 08-23-2022 Tobacco use panel [facility] Start: 08-23-2022 Tobacco Comment Would smoke 1-2 pack s a day [facility] How hard is it for y ou to pay for the very basics like food, housing, medical care, and heating Not very hard [facility] Adult Depression Scr eening Assessment 0 [facility] (I/We) worried wheth er (my/our) food would run out before (I/we) got money to buy more. Never true [facility] Clinical Notes 07-26-2022 to 09-27-2022 Assessment [...] on SatOctober 04, 2022 2:11:11 PM EDT [facility] 08-23-2022 Evaluation + Plan note Associ ated Problem(s): History of hepatitis C BW Treatment if needed for active infection [facility] 08-23-2022 Miscellaneous Notes Associate d Problem(s): History of hepatitis C BW Treatment if needed for active infection documented in this encounter [facility] 08-23-2022 History of Presen t illness [...] Jem Najera M.D. documented in this encounter [facility] 07-26-2022 Instructions Rich Farrell CNP - 07/26/2022 3:40 PM EST Thank you for choosing [facility] for your healthcare needs today. I sent [...] attachments cannot be sent through Care Everywhere.Rash (Citizen Of [place])documented in this encounter [facility] 07-26-2022 History of Presen t illness Narrative Images from the original note were not included. Patient Name: [facility] Location: [facility] [address] [facility] [address] Date Of : Date Of Visit: 1990 07/26/2022 MRN# Provider: [id number] Rich Farrell CNP Chief Complaint Patient presents [...] rash appears cleared. documented in this encounter [facility]* Diagnosis History of hepatitis C- Primary Personal history of other infectious and parasitic disease Encounter for screening and preventative care Vitamin D deficiency [facility] Diagnosis History of hepatitis C- Primary Personal history of other infectious and parasitic disease Encounter for screening and preventative care Vitamin D deficiency [facility]* Diagnosis Encounter for screening and preventative care- Primary [facility] Diagnosis Hepatitis C virus infection without hepatic coma, unspecified chronicity- Primary documented in this encounter [facility] note* Diagnosis History of hepatitis C- Primary Personal history of other infectious and parasitic disease Encounter for screening and preventative care Vitamin D deficiency documented in this encounter [facility] Summary Purpose Family History No Family [...] 9 PM Procedure Findings Note HNO ID: [id number]: Jaleesa Andrewservice: Hand SurgeryAuthor Type: PhysicianType: Brief Op NoteFiled: 03/11/2018 2:08 PMNote Text:BRIEF OPERATIVE / PROCEDURE NOTELOG ID: [id number]/Procedure Date: 03/11/2018Incision/Procedure Start Time: 1:21 PMIncision Close/Procedure End Time: 1:59 PMSurgeon(s)/Proceduralist(s) and Offset Label Rewinder(s):Surgeon(s) and Role: * Katherin Gama - Primary * Skip (Wendy Adams - Resident - AssistingNo Additional StaffProcedure(s): Revision amputation right index finger at mid-distal phalanxlevel [id number]: Monitored Anesthesia Care + BlockFindings: Comminuted tuff [...] Jem Najera MD [address] [place] [address] Rich Reyes MD [address] [place] [address] Referral ID Status Reason Start Date Expiration Date Visits Requested Visits Authorized [id number] Authorized Specialty Services Required/Pat ient's Best Interest 09/07/2022 09/07/2023 1 1 Additional Source Comments (unrecognized sect ion and content) No Status Records FoundNo Status Records FoundNo Status Records FoundNo Status Records FoundNo Status Records FoundNo Status Records FoundNo Status Records Found INFORMATION SOURCE (unrecogn ized section and content) DATE CREATED AUTHOR AUTHOR'S ORGANIZ ATION 04/27/2018 [facility] DATE CREATED AUTHOR AUTHOR'S ORGANIZ ATION 07/07/2018 [facility] DATE CREATED AUTHOR AUTHOR'S ORGANIZ ATION 11/06/2018 [facility] DATE CREATED AUTHOR AUTHOR'S ORGANIZ ATION [facility]/28/[facility] DATE CREATED AUTHOR AUTHOR'S ORGANIZ ATION 10/26/2022 [facility] DATE CREATED AUTHOR AUTHOR'S ORGANIZ ATION [facility] Reason for Visit (unrecogniz ed section and content) Care Teams (unrecognized sec tion and content) Senior Applications Analyst Relationship Specialty Start Date End Date Jem Najera MD [address] [place] [address] PCP - General Internal Medicine 08/23/22 Senior Applications Analyst Relationship Specialty Start Date End Date Jem Najera MD [address] [place] [address] PCP - General Internal Medicine 08/23/22 Senior Applications Analyst Relationship Specialty Start Date End Date Jem Najera MD [address] [place] [address] PCP - General Internal Medicine 08/23/22 Senior Applications Analyst Relationship Specialty Start Date End Date Jem Najera MD [address] [place] [address] PCP - General Internal Medicine 08/23/22 Senior Applications Analyst Relationship Specialty Start Date End Date Jem Najera MD [address] [place] [address] PCP - General Internal Medicine 08/23/22 FOR [...] BE BASED ON THE PRIMARY CLINICAL RECORDS. [employer] [facility]. provides no warranty or guarantee of the accuracy or completeness of information in this document.
[2023-07-10 06:09] LABS: Hepatitis A AB, Total Positive (Negative)
== END | disposition home or self-care (01) ==
LOC: LAB 14:34
DX: B18.2 Chronic viral hepatitis C (principal)
CPT/HCPCS: 36415; 86706; 86708

== ENCOUNTER → 2023-09-23 | Outpatient (CLI) | payer MEDICAID, SELFPAY ==
[2023-09-23 14:14] LABS: Absolute Lymphocyte Count 2.39 X10^3/uL (0.83-4.51); Absolute Neutrophil Count 7.2 X10^3/uL (2.0-7.7); Basophil# 0.05 X10^3/uL; Basophil% 0.5 % (0-1); Eosinophil# 0.05 X10^3/uL; Eosinophils% 0.5 % (0-5); Hematocrit 42.4 % (40-54); Hemoglobin 14.2 g/dL (13.0-16.5); Lymphocyte # 2.39 X10^3/ul (0.83-4.51); Lymphocyte % 23.2 % (19-41); Mean Corp Hgb Conc 33.5 g/dL (32-36); Mean Corpuscular Hgb 27.6 pg (27.0-32.0); Mean Corpuscular Volume 82.3 fL (80-94); Mean Platelet Vol. 11.4 fl (6.2-12.0); Monocyte# 0.54 X10^3/uL; Monocyte% 5.2 % (0-10); NRBC Flagged by Analyzer 0 % (0-5); Neutrophil # 7.24 X10^3/uL (2.7-7.7); Neutrophil % 70.4 % (47-70); Platelet Count 230 K/mm3 (150-450); RBC Distribution Width CV 12.9 % (11.6-14.6); RBC Distribution Width SD 38.6 fl (35.1-43.9); Red Blood Count 5.15 M/mm3 (4.6-6.2); White Blood Count 10.3 K/mm3 (4.4-11.0)
[2023-09-23 14:35] LABS: ALB/GLOB Ratio 1.2 RATIO (0.9-2.4); AST(SGOT) 21 U/L (15-37); Alanine Aminotransfer ALT/SGPT 22 U/L (16-61); Albumin, Serum 4.3 g/dL (3.2-5.0); Alkaline Phosphatase 57 U/L (45-117); Anion Gap 5 (5-15); BUN 28 mg/dL (7-18); BUN/Creat Ratio 23.7 RATIO (10-20); Calcium,Total 9.4 mg/dL (8.5-10.1); Chloride 104 mmol/L (98-107); Creatinine, Serum 1.18 mg/dL (0.70-1.30); EST Glomerular Filtration Rate 75 mL/min (>60); Est Glom Filt Rate - Afr Amer 91 mL/min (>60); Globulin 3.5 g/dL (2.2-4.2); Glucose 100 mg/dL (74-106); Potassium 3.8 mmol/L (3.5-5.1); Protein, Total 7.8 g/dL (6.4-8.2); Sodium Level 136 mmol/L (136-145)
[2023-09-25 19:07] LABS: HCV Quant. RNA PCR HCV Not Detected IU/mL (.)
== END | disposition home or self-care (01) ==
DX: B18.2 Chronic viral hepatitis C (principal)
CPT/HCPCS: 36415; 80053; 85025; 87522

== ENCOUNTER 2023-11-16 09:40 | Emergency (ER) | payer MEDICAID, SELFPAY ==
[2023-11-16 09:40] VITALS: BP 126/96; PULSE 64; RESP 16; TEMP 36.2; O2SAT 99; BMI 24.6
--- NOTE | 2023-11-16 10:15 | ED.VIS.DENTA ---
HPI History of Present Illness Chief Complaint: Dental Informant: patient Onset/Context/Timing Onset: Days Narrative Narrative: Patient presents with increased dental pain and swelling for the past week and a half or so. Patient recently went to the dentist where he had to have his bite evened out (patient had uneven bite after undergoing a root canal 6 months ago). Patient did note some increasing pain and swelling about a week and a half ago. He went to urgent care and was placed on amoxicillin. He went back 5 days later without much improvement and they switched him to Augmentin. He is scheduled to see his dentist in 2 weeks. He had subjective fevers and chills last evening. PFSH PFSH Medical History no medical history no medical history Home Medications ?Medication ?Instructions ?Recorded ?Last Taken ?Type cephalexin 500 mg capsule 500 mg PO TID 04/09/16 04/09/16 History sulfamethoxazole 800 1 tab PO BID 04/09/16 04/09/16 History mg-trimethoprim 160 mg tablet clindamycin HCl 300 mg capsule 300 mg PO TID #21 caps 01/01/22 Unknown Rx ibuprofen 800 mg tablet 800 mg PO Q8H PRN pain #30 tabs 01/01/22 Unknown Rx clindamycin HCl 150 mg capsule 300 mg (2 x 150 mg) PO 4X/DAY #80 11/16/23 Unknown Rx CAPSULES Allergy/AdvReac Type Severity Reaction Status Date / Time No Known Allergies Allergy Verified 11/16/23 09:40 Social History Smoking Status: Former smoker ROS ROS ED Constitutional Constitutional ED: Reports chills, fever(s) and subjective Eyes Eyes: Denies change in vision or discharge from eye(s) ENT ENT ED: Reports other Details: Right lower dental pain ; Denies discharge from eye(s), rhinorrhea or sore throat Cardiovascular Cardiovascular: Denies chest pain or palpitations Respiratory/Chest Respiratory/Chest: Denies cough or dyspnea Gastrointestinal Gastrointestinal: Denies abdominal pain, nausea or vomiting Musculoskeletal Musculoskeletal: Denies back pain or extremity pain Integumentary Denies Abrasions or rash Neurologic Neurologic: Denies headache(s) or weakness Allergic/Immunologic Allergic/Immunologic ED: Denies lip swelling or urticaria EXAM Physical Exam Narrative Exam Narrative: Patient sitting upright in bed no acute distress. No facial edema or erythema. Speaking with a strong voice and tolerating secretions well. Const Vital Signs: 11/16/23 09:40 Temperature 97.2 F L Temperature Source Temporal Pulse Rate 64 Respiratory Rate 16 Blood Pressure 126/96 H Blood Pressure Mean 106 Pulse Ox 99 Oxygen Delivery Method Room Air Positive well nourished and well developed General Appearance ED: well developed HEENT HEENT Narrative: Intraoral examination reveals minimal gum edema around the right first mandibular molar. No trismus. Posterior pharynx exam unremarkable. Eyes EOMs intact bilaterally Neck no lymphadenopathy Chest Wall inspection of chest normal and palpation of chest normal Resp normal respiratory effort and clear to auscultation bilaterally Cardio regular rate and regular rhythm GI non-tender Palpation: soft Extremity normal to inspection Neuro oriented x3 and moves all extremities Psych mental status grossly normal Skin no rashes or lesions noted MDM MDM MDM Narrative Medical decision making narrative: Patient has been on penicillins without significant proven his symptoms. We will switch him to clindamycin. First dose will be given here and prescription sent to the pharmacy for him. Return instructions were provided. Discharge Plan Triage Chief Complaint: Dental ED Provider: Rebeca Henderson Dx/Rx/DC Orders Clinical Impression: Odontalgia Instructions: ED Dental Pain Prescriptions: New clindamycin HCl 150 mg capsule 300 mg PO 4X/DAY Qty: 80 0RF No Action sulfamethoxazole-trimethoprim 1 TABLET tablet 1 tab PO BID cephalexin 500 MG capsule 500 mg PO TID clindamycin HCl 300 mg capsule 300 mg PO TID Qty: 21 0RF ibuprofen 800 mg tablet 800 mg PO Q8H PRN (Reason: pain) Qty: 30 0RF Primary Care Provider: Care Physician,No Primary Referrals: Care Physician,No Primary [Primary Care Provider] - Activity Restrictions/Additional Instructions: Follow-up with your dentist as scheduled. Print Language: Kazakh Disposition Disposition: Home, Self Care Discharge Date/Time: 11/16/23 10:51
[2023-11-16] MEDS: Clindamycin HCl 150 MG Capsule 300 MG PO (10:46)
== END 2023-11-16 10:51 | disposition home or self-care (01) ==
LOC: ED 10:22
PROVIDERS: Emergency Provider Emergency Medicine; Visit Provider Emergency Medicine
DX: K08.89 Other specified disorders of teeth and supporting structures (principal); Z87.891 Personal history of nicotine dependence
CPT/HCPCS: 99282

== ENCOUNTER → 2024-01-16 | Outpatient (CLI) | payer MEDICAID, SELFPAY ==
[2024-01-16 12:31] LABS: Color, Urine Yellow (Yellow); Glucose, Dipstick Normal (Normal); Ketone-Dipstick Negative (Negative); Leukocyte Esterase-Dipstick Negative /ul (Negative); Nitrite-Dipstick Negative (Negative); Occult Blood-Urine Negative /ul (Negative); Protein-Dipstick Negative (Negative); Urine Bilirubin Dipstick Negative (Negative); Urine Clarity Clear (Clear); Urine Urobilinogen Normal (Normal)
[2024-01-16 12:41] LABS: Absolute Lymphocyte Count 2.87 X10^3/uL (0.83-4.51); Absolute Neutrophil Count 5.2 X10^3/uL (2.0-7.7); Basophil# 0.04 X10^3/uL; Basophil% 0.5 % (0-1); Eosinophil# 0.05 X10^3/uL; Eosinophils% 0.6 % (0-5); Hematocrit 42.9 % (40-54); Hemoglobin 14.4 g/dL (13.0-16.5); Lymphocyte # 2.87 X10^3/ul (0.83-4.51); Lymphocyte % 32.8 % (19-41); Mean Corp Hgb Conc 33.6 g/dL (32-36); Mean Corpuscular Hgb 28.4 pg (27.0-32.0); Mean Corpuscular Volume 84.6 fL (80-94); Mean Platelet Vol. 11.2 fl (6.2-12.0); Monocyte# 0.56 X10^3/uL; Monocyte% 6.4 % (0-10); NRBC Flagged by Analyzer 0 % (0-5); Neutrophil % 59.5 % (47-70); Platelet Count 222 K/mm3 (150-450); RBC Distribution Width CV 12.9 % (11.6-14.6); RBC Distribution Width SD 39.1 fl (35.1-43.9); Red Blood Count 5.07 M/mm3 (4.6-6.2); White Blood Count 8.7 K/mm3 (4.4-11.0)
[2024-01-16 13:29] LABS: Hemoglobin A1c 5.2 % (3.8-5.6)
[2024-01-16 17:59] LABS: ALB/GLOB Ratio 1.2 RATIO (0.9-2.4); AST(SGOT) 32 U/L (15-37); Alanine Aminotransfer ALT/SGPT 25 U/L (16-61); Albumin, Serum 4.6 g/dL (3.2-5.0); Alkaline Phosphatase 58 U/L (45-117); Anion Gap 7 (5-15); BUN 21 mg/dL (7-18); BUN/Creat Ratio 18.6 RATIO (10-20); Calcium,Total 9.9 mg/dL (8.5-10.1); Chloride 102 mmol/L (98-107); Cholesterol 229 mg/dL (200); Creatinine, Serum 1.13 mg/dL (0.70-1.30); EST Glomerular Filtration Rate 79 mL/min (>60); Est Glom Filt Rate - Afr Amer 96 mL/min (>60); Globulin 3.7 g/dL (2.2-4.2); Glucose 93 mg/dL (74-106); High Density Lipoprotein 86 mg/dL; Potassium 4.2 mmol/L (3.5-5.1); Protein, Total 8.3 g/dL (6.4-8.2); Sodium Level 138 mmol/L (136-145); Triglycerides 62 mg/dL; Very Low Density Lipoprotein 12 mg/dL (5-40)
[2024-01-16 18:15] LABS: HIV - WCH Non-Reactive (Nonreactive); Syphilis Antibodies Non-reactive; Vitamin B12 601 pg/mL (211-911); Vitamin D,25 Hydroxy 58.7 ng/mL
== END | disposition home or self-care (01) ==
PROVIDERS: PCP Nurse Practitioner Family; Visit Provider Nurse Practitioner Family
DX: Z00.00 Encounter for general adult medical examination without abnormal findings (principal); E55.9 Vitamin D deficiency, unspecified
CPT/HCPCS: 36415; 80053; 80061; 81002; 82306; 82607; 83036; 84443; 85025; 86703; 86780; 87491; 87591

== ENCOUNTER → 2024-08-11 | Outpatient (CLI) | payer MEDICAID, SELFPAY ==
[2024-08-11 14:43] LABS: Anion Gap 11 (5-15); BUN 17 mg/dL (4-19); BUN/Creat Ratio 14.7 RATIO (10-20); Calcium,Total 7.9 mg/dL (7.6-11.0); Carbon Dioxide 24.8 mmol/L (21.0-32.0); Chloride 101 mmol/L (98-108); Cholesterol 219 mg/dL (<=200); Creatinine, Serum 1.18 mg/dL (0.70-1.20); EST Glomerular Filtration Rate 83 (>60); Glucose 92 mg/dL (70-99); High Density Lipoprotein 76 mg/dL; Low Density Lipoprotein Calc. 134 mg/dL; Potassium 4.8 mmol/L (3.3-5.1); Sodium Level 138 mmol/L (133-145); Triglycerides 44 mg/dL; Very Low Density Lipoprotein 9 mg/dL (5-40); cholesterol:hdl ratio screen 2.88
== END | disposition home or self-care (01) ==
LOC: VSLAB 08:50
PROVIDERS: PCP Nurse Practitioner Family; Visit Provider Nurse Practitioner Family
DX: I10 Essential (primary) hypertension (principal); R89.8 Other abnormal findings in specimens from other organs, systems and tissues
CPT/HCPCS: 36415; 80048; 80061

== ENCOUNTER 2025-03-20 06:31 | Emergency (ER) | payer MEDICAID, SELFPAY ==
[2025-03-20 06:31] VITALS: BP 135/73
[2025-03-20 06:32] VITALS: BP 155/86; PULSE 63; RESP 16; TEMP 36.6; O2SAT 100; BMI 24.9
--- NOTE | 2025-03-20 06:54 | EKG12_ITS ---
Test Reason : HTN
[2025-03-20 07:17] VITALS: BP 121/78; PULSE 58; RESP 17; TEMP 36.6; O2SAT 100
[2025-03-20 07:19] VITALS: BP 127/73; PULSE 59; RESP 17; TEMP 36.6; O2SAT 99
--- NOTE | 2025-03-20 07:39 | EX.ED.DYSGE1 ---
HPI History of Present Illness Chief Complaint: Hypertension Informant: patient Narrative Narrative: Patient is a 34-year-old male with reported hypertension. He states he has been on low-dose lisinopril but stopped it secondary to adverse effects such as feeling lightheaded and dizzy. He reports that he continues to check his blood pressure however and he has noticed that he is having higher readings and that he feels they are different when he checks between the left and right arm. He reports a family history of heart disease. 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 He also denies any excessive stimulant use such as caffeine or nicotine. He denies any headache or change in vision or chest pain but with his blood pressures bouncing around and being asymmetric he presents for evaluation [facility] Medical History Right groin pain HTN (hypertension) Home Medications ?Medication ?Instructions ?Recorded ?Last Taken ?Type lisinopril 5 mg tablet 5 mg PO QDAY 11/27/24 Unknown History Held on 03/20/25. Instructions: MD Ordered Allergy/AdvReac Type Severity Reaction Status Date / Time No Known Allergies Allergy Verified 03/20/25 06:33 Family History (Updated 11/27/24 @ 09:11 by Sonja Albarran) Sister Asthma Mother Hypertension Father Heart disease Grandfather Cancer thyroid Surgical History Hx of tonsillectomy Social History Smoking Status: Former smoker ROS ROS ED Constitutional Constitutional ED: Denies chills or fever(s) Eyes Eyes: Denies blurry vision or change in vision ENT ENT ED: Denies sore throat Cardiovascular Cardiovascular: Denies chest pain, palpitations or racing heartbeat Respiratory/Chest Respiratory/Chest: Denies cough or dyspnea Gastrointestinal Gastrointestinal: Denies abdominal pain, diarrhea, nausea or vomiting Musculoskeletal Musculoskeletal: Denies back pain Integumentary Denies rash Neurologic Neurologic: Denies headache(s) or paresthesias Hematologic/Lymphatic Hematologic/Lymphatic: Denies easy bleeding or easy bruising EXAM Physical Exam Const Vital Signs: 03/20/25 06:31 03/20/25 06:32 03/20/25 06:35 Temperature 98 F Temperature Source Oral Pulse Rate 63 Respiratory Rate 16 Respiratory Effort Normal Respiratory Pattern Normal Blood Pressure 135/73 H 155/86 H Blood Pressure Mean 93 109 Pulse Ox 100 Oxygen Delivery Method 03/20/25 07:17 03/20/25 07:19 Temperature 97.8 F 97.8 F Temperature Source Oral Oral Pulse Rate 58 L 59 L Respiratory Rate 17 17 Respiratory Effort Respiratory Pattern Blood Pressure 121/78 H 127/73 H Blood Pressure Mean 92 91 Pulse Ox 100 99 Oxygen Delivery Method Room Air Room Air Positive well nourished and well developed General Appearance ED: well developed; Negative for pallor HEENT HEENT Narrative: Normocephalic atraumatic Eyes PERRL and EOMs intact bilaterally General Eye ED: Negative for scleral icterus Neck supple Neck Narrative: No nuchal rigidity or meningeal signs Chest Wall palpation of chest normal Resp normal respiratory effort and clear to auscultation bilaterally Cardio regular rate and regular rhythm Rate: other Other Details: Heart is regular rate and rhythm without murmurs rubs or gallops Radial and carotid pulses are equal and symmetric No carotid bruit noted GI normal to inspection, nondistended, normoactive bowel sounds, non-tender, non-distended and no masses GI Narrative: No pulsatile mass Auscultation: normoactive bowel sounds Palpation: soft Extremity normal to inspection Extremity Narrative: No asymmetric edema no pitting edema negative Homans' sign bilaterally Neuro oriented x3, CN's II-XII intact bilaterally and no sensory deficits noted Neuro Narrative: GCS of 15 Cranial nerves II through XII are grossly intact without focal neurologic deficit No pronator drift no dysmetria no truncal ataxia NIH stroke scale score of 0 Sensorium / Orientation: alert Motor Exam: strength 5/5 throughout Psych mental status grossly normal Skin no rashes or lesions noted General Skin Exam: Negative for jaundice or pallor MDM MDM MDM Narrative Medical decision making narrative: Patient presented to the ER with borderline hypertension. As she reports that the values have been elevated at home without obvious reasons such as excessive stimulant use or illicit drug use I did elect to check basic laboratory values to assess for thyroid disorder or kidney injury as potential cause. Laboratory values revealed no clinically significant findings and EKG showed no sign of cardiac ischemia. Moreover we did check blood pressure in both the left and right arm and they were very similar. The D-dimer was also negative going against a PE or dissection as a potential cause for the reported asymmetry between the blood pressure values. Therefore at this time blood pressure has spontaneously improved his neurologic exam is normal he does not have findings of endorgan damage such as acute kidney injury hypertensive encephalopathy or acute coronary syndrome and is otherwise safe for discharge. History & Record Review Discussion w/independent historian: Patient Lab Data Labs: Laboratory Results - last 24 hr 03/20/25 07:35 WBC 7.2 RBC 5.68 Hgb 16.0 Hct 47.6 MCV 83.8 MCH 28.2 MCHC 33.6 RDW Std Deviation 38.5 RDW Coeff of Isaías 12.7 Plt Count 234 MPV 10.8 Immature Gran % (Auto) 0.100 Neut % (Auto) 57.9 Lymph % (Auto) 32.0 Barber % (Auto) 7.3 Eos % (Auto) 2.1 Baso % (Auto) 0.6 Absolute Neuts (auto) 4.2 Absolute Lymphs (auto) 2.31 Nucleated RBC % 0 Discharge Plan Triage Chief Complaint: Hypertension ED Provider: Eric Rivera Dx/Rx/DC Orders Clinical Impression: Hypertension Instructions: ED High Blood Pressure Hypertension Prescriptions: No Action lisinopril 5 mg tablet 5 mg PO QDAY Primary Care Provider: Vijay Emmanuel Referrals: Vijay Emmanuel, [employer] [Primary Care Provider, [facility]] Activity Restrictions/Additional Instructions: Your workup today revealed no acute findings related to your high blood pressure. Continue to trend your blood pressure and discuss restarting your medication with him. Return to the ER should you have any further concerns Print Language: Armenian Disposition Disposition: Home, Self Care
[2025-03-20 07:42] LABS: Hematocrit 47.6 % (40-54); Hemoglobin 16.0 g/dL (13.0-16.5); Immature Granulocytes Count 0.010 X10^3/uL (0.0-0.0); Mean Corp Hgb Conc 33.6 g/dL (32-36); Mean Corpuscular Volume 83.8 fL (80-94); Mean Platelet Vol. 10.8 fl (6.2-12.0); NRBC Flagged by Analyzer 0 % (0-5); Platelet Count 234 K/mm3 (150-450); RBC Distribution Width CV 12.7 % (11.6-14.6); RBC Distribution Width SD 38.5 fl (35.1-43.9); Red Blood Count 5.68 M/mm3 (4.6-6.2); White Blood Count 7.2 K/mm3 (4.4-11.0)
[2025-03-20 07:58] LABS: D-Dimer Quantitative (DVT/PE) 0.27 FEU/ug/m (0.27-0.49)
[2025-03-20 08:12] LABS: Anion Gap 10 (5-15); BUN 22 mg/dL (4-19); BUN/Creat Ratio 20.6 RATIO (10-20); Calcium,Total 10.1 mg/dL (7.6-11.0); Carbon Dioxide 29.4 mmol/L (21.0-32.0); Chloride 100 mmol/L (98-108); Estimated Creatinine Clearance 91.51 ml/min (50-250); Glucose 87 mg/dL (70-99); Potassium 3.9 mmol/L (3.3-5.1)
[2025-03-20 08:17] VITALS: BP 113/78; PULSE 58; RESP 20; TEMP 36.4; O2SAT 99
== END 2025-03-20 08:26 | disposition home or self-care (01) ==
PROVIDERS: Emergency Provider Emergency Medicine; PCP Nurse Practitioner Family; Visit Provider Emergency Medicine
DX: I10 Essential (primary) hypertension (principal); Z79.899 Other long term (current) drug therapy; Z87.891 Personal history of nicotine dependence
CPT/HCPCS: 80048; 84443; 85025; 85379; 93005; 99282